=== PATIENT | male | born 1965 | race African-American/Black ===

== ENCOUNTER 2018-02-12 12:39 | Emergency (ER) | payer SELFPAY ==
[~2018-02-12] VITALS: Ht 185.4 cm; Wt 81.0 kg
[2018-02-12 12:57] VITALS: BP 137/85
== END 2018-02-12 15:01 | disposition home or self-care (01) ==
LOC: ER 13:09
DX: S00.83XA Contusion of other part of head, initial encounter (principal); S39.012A Strain of muscle, fascia and tendon of lower back, initial encounter; S16.1XXA Strain of muscle, fascia and tendon at neck level, initial encounter; Z96.659 Presence of unspecified artificial knee joint; V43.52XA Car driver injured in collision with other type car in traffic accident, initial encounter; Y93.89 Activity, other specified; Y92.488 Other paved roadways as the place of occurrence of the external cause
CPT/HCPCS: 99282